=== PATIENT | male | born 1945 | race Caucasian/White ===

== ENCOUNTER → 2018-11-29 12:19 | Outpatient (CLI) | payer MEDICARE, SELFPAY ==
--- NOTE | 2018-11-29 12:40 | CT_ITS ---
PROCEDURE: CT ANGIO CHEST CLINCIAL INDICATION: LT CHEST PAIN, HX PE, PLEURITIC CP, SOB COMPARISON: No exams were available for comparison TECHNIQUE: IV Contrast: 70ML OPTIRAY 350 Axial images obtained with sagittal and coronal reformats. All CT scans at the facility use one or more dose reduction, viz: automated exposure control, ma/kV adjustment per patient size (including targeted exams where dose is matched to indication, i.e. head), or iterative reconstruction technique. FINDINGS: Acute pulmonary emboli are present bilaterally. There is a prominent embolus within the distal aspect of the right main pulmonary artery extending into upper and lower lobe branches and segmental branches. Pulmonary embolus also present on the left at the bifurcation of the left main pulmonary artery extending into the descending pulmonary artery and segmental branches. The intraventricular septum is not flattened or bowed. Contrast is not reflux into the inferior vena cava. There are atheromatous changes of the thoracic aorta. No evidence of aneurysm or dissection. Coronary artery calcifications are present. No evidence of pericardial effusion. There is a small left pleural effusion. Pleural calcification is present in the lung apices with parenchymal areas of fibrosis noted. Old granulomatous disease is present. There are mild atelectatic changes in the left lung base. IMPRESSION: Acute bilateral pulmonary emboli as described above. No evidence of RV strain. Small left pleural effusion. Chronic changes of the lungs with pleural calcifications Coronary artery calcifications Marcie at Dr. Adams office was given the report on the significant finding 11/29/2018 at 2 old 9 p.m. Dictated by: Keegan Robison MD 11/29/2018 14:10 Signed by: <Electronically signed by Keegan Robison MD in [place]> 11/29/2018 14:10
[2018-11-29 13:24] LABS: Blood Urea Nitrogen 22 mg/dL (7-18); Creatinine,Serum 1.39 mg/dL (0.70-1.30); Estimated Glomerular Filt Rate 50 ml/min (>60); GFR (African American) 60 ML/MIN (>60)
== END ==
PROVIDERS: PCP Family Medicine; Visit Provider Family Medicine
DX: R07.9 Chest pain, unspecified (principal); R07.81 Pleurodynia; R06.02 Shortness of breath; Z86.711 Personal history of pulmonary embolism
CPT/HCPCS: 36415; 71275; 82565; 84520

== ENCOUNTER 2020-08-01 21:02 | Emergency (ER) | payer MEDICARE, SELFPAY ==
[2020-08-01 21:21] VITALS: BP 146/95; PULSE 93; RESP 17; TEMP 36.5; O2SAT 98; BMI 28.7
[2020-08-01 21:26] VITALS: BP 146/95; PULSE 95; O2SAT 98
[2020-08-01 21:30] VITALS: BP 130/81; PULSE 92; O2SAT 98
--- NOTE | 2020-08-01 21:37 | [facility].EDSKAF ---
ED Disposition Clinical Impression: Cellulitis Qualifiers: Site of cellulitis: neck Qualified Code(s): L03.221 - Cellulitis of neck Disposition: Home, Self-Care Condition on Discharge: Good Instructions: DI for Cellulitis -- Adult Additional Instructions: use meds and see pcp for follow and culture results Prescriptions: cephALEXin [cephALEXin 500mg capsule*] 500 mg PO TID #30 cap Prescription Printed clindamycin HCL [Clindamycin HCl] 300 mg PO TID #21 cap Prescription Printed Referrals: Elier Adams MD [Primary Care Provider] - - Critical Care Critical Care Time: No Attestation: On 08/01/20, the high probability of a clinically significant, sudden or life threatening deterioration of the following system(s) required my full and direct attention, intervention and personal management. The time I documented below is in addition to time spent performing reported procedures but includes the following listed in this critical care notation. Medical Decision Making - Medical Records Medical records reviewed: Yes: I reviewed the patient's medical records. - Rodney Inquiry Pt receiving controlled substance: No Vital Signs: 08/01/20 21:21 08/01/20 21:26 08/01/20 21:30 Temperature 97.7 F Temperature Source Oral Pulse Rate 95 H 92 H Pulse Rate [Right Brachial] 93 H Respiratory Rate 17 Blood Pressure 146/95 H 130/81 Blood Pressure [right arm] 146/95 H Blood Pressure Mean 114 Blood Pressure Mean [right arm] 112 Blood Pressure Source Automatic Cuff Blood Pressure Source [right arm] Automatic Cuff Blood Pressure Position [right arm] Sitting 02 Sat by Pulse Oximetry 98 98 98 Oxygen Delivery Method Room Air Room Air Orders (Tests/Meds): ORDERS Category Date Time Status Wound Culture and Gram Stain Stat Micro 08/01/20 21:30 Received Medical Decision Narrative: will do c/s and start abx at this time and ask pt to call pcp for follow up Skin/Abscess/FB HPI - General Chief complaint: Skin/Abscess/Foreign Body Stated complaint: tags cut off 0419\ Time Seen by Provider: 08/01/20 21:30 Mode of Arrival: Family Vehicle Source of Information: Patient, Significant Other, Medical Record Limitations: No Limitations Description of Symptoms (Recalled from ER Triage Doc. by RN): had moles/skin tags removed in the office earlier this past week and noted pt thought one might be infected as it was draining purulent drainage. - History of Present Illness HPI narrative: had skin tags removed and concerned about possible infection as pt has had drainage from lesion - no fever or other c/o MD complaint: abscess/boil Onset (ago): hour(s) Tetanus up to date: unsure Location: neck Severity: moderate Associated symptoms: denies other symptoms Treatments prior to arrival: none - Related Data Previous Rx's Medication Instructions Recorded cephALEXin [cephALEXin 500mg 500 mg PO TID #30 cap 08/01/20 capsule*] clindamycin HCL [Clindamycin HCl] 300 mg PO TID #21 cap 08/01/20 Allergies Allergy/AdvReac Type Severity Reaction Status Date / Time NO KNOWN ALLERGIES Allergy Unknown Uncoded 03/28/17 15:10 [facility] History - Hepatitis A Screen Drug use history?: No High risk sexual behaviors?: No History of sexually transmitted infection?: No Currently employed?: No Childcare worker?: No Do you have indoor plumbing?: Yes Do you have electricity?: Yes Attestation statement:: This patient has been screened for Hepatitis A risk factors. I have reviewed the patient's past medical history: Yes ROS Obtained: Yes All systems reviewed & no additional complaints - Constitutional Constitutional: Denies fever(s) - Eyes Eyes: Denies change in vision - ENT Ears, Nose, Mouth, and Throat: Denies sore throat - Cardiovascular Cardiovascular: Denies chest pain - Respiratory Respiratory: Denies shortness of breath - Gastrointestinal Gastrointestingal: Denies: abdominal pain
[2020-08-01 22:04] VITALS: BP 125/74; PULSE 72; RESP 17; TEMP 36.8; O2SAT 99
== END 2020-08-01 22:06 | disposition home or self-care (01) ==
PROVIDERS: Emergency Provider Emergency Medicine; PCP Family Medicine
DX: L03.221 Cellulitis of neck (principal)
CPT/HCPCS: 87070; 87077; 87186; 87205; 99282

== ENCOUNTER 2024-01-25 13:24 | Emergency (ER) | payer MEDICARE, SELFPAY ==
[2024-01-25 13:40] VITALS: BP 116/70; PULSE 96; RESP 20; TEMP 37.1; O2SAT 99; BMI 23.7
--- NOTE | 2024-01-25 13:49 | ED_ITS ---
Discharge Plan Disposition Patient Disposition: Home, Self-Care Condition: Good Prescriptions Prescriptions: New cefdinir 300 mg capsule 300 mg PO BID Qty: 20 0RF azithromycin [Zithromax Z-Jose] 250 mg tablet See Rx Instructions .ROUTE .COMPLEX 5 Days Qty: 6 0RF Rx Instructions: For 250 mg dose pack: take 500 mg today (day 1), then 250 mg for 4 days (days 2-5) benzonatate 100 mg capsule 100 mg PO TID PRN (Reason: cough) Qty: 30 0RF methylprednisolone [Medrol (Jose)] 4 mg tablets,dose pack See Rx Instructions .Route .COMPLEX 6 Days Qty: 21 0RF Rx Instructions: taper pack; No Action atorvastatin 40 mg tablet 40 mg PO DAILY Patient Comments: TAKE 1 TABLET BY MOUTH EVERY DAY lisinopril-hydrochlorothiazide 20-12.5 mg tablet 1 tab PO DAILY Patient Comments: TAKE 1 TABLET BY MOUTH EVERY DAY Eliquis 2.5 mg tablet 2.5 mg PO BID Patient Comments: TAKE 1 TABLET BY MOUTH TWICE DAILY Referrals Follow up/Referrals: Nury Cotton MD [Primary Care Provider] - See instructions Activity Restrictions/Add. Instructions Additional Instructions/Restrictions: Start oral Cefdnir tomorrow * Start azithromycin antibiotic today. Be sure to complete entire prescription even if feeling better * Monitor temp. Tylenol every 4 hours as needed and / or ibuprofen every 6 hours as needed ( As long as your primary care physician has told you that it ok to take both. For fever/aches/pains ER if no less than 101 despite Tylenol or Motrin * Humidifier/vaporizer or hot steamy shower *Tessalon Perles will not cause drowsiness but use at bedtime to help stop cough so that you may get some rest. *Start Medrol tomorrow. Helps with inflammation therefore, cough and wheezing. Follow directions on the package. Reviewed side effects. Patient reports taking them before. Follow up IMMEDIATELY for new or worsening of symptoms OR no noticeable improvement over the next 48-72 hours. 911 immediately for any life threatening symptoms such as chest pain or difficulty breathing Clinical Impressions Clinical Impression: Bronchitis Instructions Patient Instructions: Azithromycin, Cefdinir Print Language Print Language: Lebanese Discharge ED Provider: Miladis Stapleton [facility] [place] General Stated complaint: cough, congestion, no appetite Mode of Arrival: Ambulatory Source of Information: Patient Limitations: No Limitations Time Seen by Provider: 01/25/24 13:49 Description of Symptoms (Recalled from Triage Doc. by RN): PATIENT C/O COUGH AND DECREASED APPETITE. PATIENT STATES HE HAD COVID APPROX 1 MONTH AGO AND THE COUGH HAS LINGERED SINCE HEENT Symptoms (Recalled from RN notes): No Resp Symptoms (Recalled from RN notes): Yes Skin Symptoms (Recalled from RN notes): No MS Symptoms (Recalled from RN notes): No Functional Status (Recalled from RN notes): WNL History of Present Illness Provider Complaint: Patient states he had COVID about a month ago and since he has been having cough, chest congestion and decreased appetite States he is loosing his voice and his ears are stopped up Related Data Home Medications ?Medication ?Instructions ?Recorded ?Confirmed apixaban 2.5 mg tablet (Eliquis) 2.5 mg PO BID 01/25/24 01/25/24 atorvastatin 40 mg tablet 40 mg PO DAILY 01/25/24 01/25/24 lisinopril 20 1 tab PO DAILY 01/25/24 01/25/24 mg-hydrochlorothiazide 12.5 mg tablet Previous Rx's ?Medication ?Instructions ?Recorded azithromycin 250 mg tablet See Rx Instructions PO .COMPLEX 5 01/25/24 (Zithromax Z-Jose) days #6 tabs benzonatate 100 mg capsule 100 mg PO TID PRN cough #30 caps 01/25/24 cefdinir 300 mg capsule 300 mg PO BID #20 caps 01/25/24 methylprednisolone 4 mg tablets in See Rx Instructions .Route 01/25/24 a dose pack (Medrol (Jose)) .COMPLEX 6 days #21 tabs Allergies Allergy/AdvReac Type Severity Reaction Status Date / Time No Known Allergies Allergy Verified 01/25/24 13:49 Worker's Comp Is this a Worker's Comp case?: No [facility] Disclaimer: The information contained in this section may have been updated after the patient was seen, as this information can be updated by other users. Medical History (Updated 01/25/24 @ 14:31 by Miladis Stapleton APRN) Hyperlipidemia Hypertension Social History Smoking Status: Unknown if ever smoked alcohol intake: never current occupational status: retired Travel in the last 8 weeks: None ROS Obtained: Yes All systems reviewed & no additional complaints except as documented and Yes Systems reviewed as appropriate & no additional complaints except as documented Constitutional Constitutional: Reports system reviewed and no additional complaints, except as documented, Reports as per HPI and Reports headache(s) ENT Ears, Nose, Mouth, and Throat: Reports system reviewed and no additional complai nts, except as documented, Reports as per HPI, Reports headache(s), Reports nasal congestion and Reports other (hoarseness) Cardiovascular Cardiovascular: Reports system reviewed and no additional complaints, except as documented and Reports as per HPI Respiratory Respiratory: Reports system reviewed and no additional complaints, except as documented, Reports as per HPI, Denies shortness of breath, Reports chest congestion, Reports cough and Denies wheezing Gastrointestinal Gastrointestingal: Reports system reviewed and no additional complaints, except as documented and as per HPI Neurologic Neurologic: Reports headache(s) Allergic/Immunologic Allergic/Immunologic: Denies wheezing Physical Exam General General appearance: alert and in no apparent distress ENT ENT exam: Present mucous membranes moist Expanded ENT Exam TM/Canal exam: Bilateral TM: cerumen impaction Nose exam: Present sinus tenderness Throat exam: Present other (Pharyngeal erythema noted with PND) Respiratory Respiratory exam: Present normal lung sounds bilaterally; Absent respiratory distress or wheezes Cardiovascular Cardiovascular exam: Present regular rate, normal rhythm and normal heart sounds Neurological Exam Neurological exam: Present alert, oriented X3 and normal gait Medical Decision Making Medical Records Screening: Per USPSTF and CDC recommendations, given the prevalence of disease in our region, it is our hospital?s policy to screen for HIV and viral Hepatitis for all patients aged 18 and over and those with ongoing risk factors. Rodney Inquiry Pt receiving controlled substance: No Rodney was queried for this patient: No Vital Signs: 01/25/24 13:40 Temperature 98.7 F Temperature Source Oral Pulse Rate [Left Brachial] 96 H Respiratory Rate 20 Blood Pressure [Left Arm] 116/70 Blood Pressure Mean [Left Arm] 85 Blood Pressure Source [Left Arm] Automatic Cuff Blood Pressure Position [Left Arm] Sitting 02 Sat by Pulse Oximetry 99 Oxygen Delivery Method Room Air Medical Decision Narrative: Patient was awaiting chest xray and then patient refused to wait and did not want to wait on the xray
[2024-01-25] MEDS: LIDOCAINE 1% 5ML PF VIAL IM (14:21)
[2024-01-25] MEDS: METHYLPREDNISOLONE SOD SUCC 125MG VIAL 125 MG IM (14:21)
[2024-01-25] MEDS: cefTRIAXone 1GM VIAL 1 GM IM (14:21)
[2024-01-25 14:34] VITALS: BP 116/70; PULSE 96; RESP 20; TEMP 37.1; O2SAT 99
== END 2024-01-25 14:42 | disposition home or self-care (01) ==
PROVIDERS: Emergency Provider Nurse Practitioner; PCP Family Medicine
DX: J40 Bronchitis, not specified as acute or chronic (principal)
CPT/HCPCS: 96372; 99213; G0381; J0696; J2919